=== PATIENT | male | born 1930 | race Caucasian/White ===

== ENCOUNTER 2016-09-19 08:43 | Inpatient (IN) | payer MEDICARE, OTHER ==
[~2016-09-19] VITALS: Ht 182.9 cm; Wt 72.0 kg
--- NOTE | ~2016-09-19 | DS ---
Unit #: [id number] #: [id number] Patient: ROBI SMITH SR [id number] [address] [address] [id number] MR#: [id number] NAME: ROBI SMITH SR ROOM: 468 Age: 86 Sex: M Admission Date: 09/19/2016 : 1930 Discharge Date: 09/22/2016 Attending Physician: Robi Sullivan M.D. Primary Care Physician: Ian Champagne M.D. DISCHARGE SUMMARY ADMITTING DIAGNOSES 1. Metastatic prostate cancer. 2. Urinary retention. DISCHARGE DIAGNOSES 1. Metastatic prostate cancer, status post channel transurethral resection of the prostate. 2. Urinary retention. REASON FOR ADMISSION The patient is an 86-year-old male who has metastatic prostate cancer. He is on hormone replacement. He had previous external beam radiation therapy. He has developed problems with hematuria and urinary retention. The risks, benefits and alteratives of transurethral resection of the prostate were discussed with the patient. Informed consent was obtained. He wished to proceed. HOSPITAL COURSE The patient was admitted and underwent transurethral resection of the prostate. He underwent continuous bladder irrigation. On postoperative day one he did pull his catheter a little bit and did have some brief gross hematuria, but it cleared. On postoperative day two he underwent a voiding trial. He had low postvoid residuals, but did have frequency and urgency. His urine is clear. He will be discharged today. FOLLOWUP He will follow up with Dr. Sullivan in one week. He will follow up earlier if there are any concerns, including temperature greater than 101, inability to tolerate fluids, pain not controlled by p.o. pain medications, chest pain, shortness of breath, lower extremity swelling or any other concerns. DISCHARGE MEDICATIONS 1. Percocet. 2. Keflex. 3. Peridium. 4. Colace. 5. He will resume his home medications. Dictated by... Peter Shoemaker M.D. Unit #: [id number] #: [id number] Patient: ROBI SMITH SR MDP/gz TD: 09/22/2016 07:11 JOB #: [id number] DISCHARGE SUMMARY Page 1 of 1 X Peter Shoemaker MD X DISCHARGE SUMMARY
--- NOTE | ~2016-09-19 | OR ---
Unit #: [id number] #: [id number] Patient: JAGJIT SMITH SR [id number] [address] [place], [place] [address] [id number] I MR#: [id number] NAME: JAGJIT SMITH SR ROOM: 468 Date of Procedure: 09/19/2016 Admission Date: 09/19/2016 Surgeon: Jagjit Sullivan M.D. : 1930 Attending Physician: Jagjit Sullivan M.D. Primary Care Physician: Ian Champagne M.D. OPERATIVE REPORT PREOPERATIVE DIAGNOSES Urinary retention, benign prostatic hypertrophy, recurrent prostate cancer. 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 PROCEDURES PERFORMED Cystoscopy with secondary transurethral resection of prostate. ANESTHESIA General. INDICATIONS FOR PROCEDURE This 86-year-old man, who initially had a 90 g prostate and external beam radiotherapy for prostate cancer in 1998, subsequently underwent a small TUR of prostate in 2008. He has recently developed urinary retention and problems with hematuria. His PSA is 17 and he has multiple pulmonary nodules consistent with metastatic prostate cancer. He presents having been on Casodex for several weeks, awaiting a Lupron injection. This was coordinated by Medical Oncology. DESCRIPTION OF PROCEDURE The patient was given satisfactory general anesthesia and preoperative antibiotics. He was positioned in dorsal lithotomy and the genitalia were prepped and draped. 21-Nigerien rigid cystoscope was introduced with a 30-degree lens and video noting a normal anterior urethra. The prostatic urethra was fibrotic and obstructive at the apex. Advancing the scope with rather forceful maneuvers to angle upward was not possible and even arced the sheath somewhat. I was not able to introduce the 22-scope with its obturator either. Fortunately, I was able to methodically place the 24-Nigerien resectoscope sheath with its obturator barely. This allowed falling back to see very fibrotic apices, especially on the right. There was anterior tissue, which did not appear safe to resect due to the difficulty identifying the distal extent and origins of sphincter. There was tissue on the right side and posteriorly, that was readily amenable to treatment however. In the bladder itself, there was no obvious advancement of cancer beyond the bladder neck and orifices were difficult to ascertain, but certainty appeared normal. There were no stones, tumors, or suspicious areas in the bladder. There was evidence of previous more proximal resection. Unit #: [id number] #: [id number] Patient: JAGJIT SMITH SR I used the 24-Nigerien resectoscope loop to trim some of the right remaining lobe anterior to posterior toward the apex. There was a similar and lesser resection on the left. Deepening the floor, increased the mobility of the resectoscope and reduced the angular stress. I took a look at the area several times, extending the resection closer to it until it appeared there was a clear channel. At this point, all chips were evacuated from the bladder and a 3 mm rollerball was applied, not only to mucosal edges, but much of the resected area. With complete hemostasis, the resectoscope was removed after filling the bladder and there was a spontaneous brisk stream. A 24 three-way Suh catheter was placed. The limited amount of chips were sent in formalin. Routine post TURP care is anticipated with observation overnight. Dictated by... Todd Yang/umberto TD: 09/20/2016 09:09 JOB #: [id number] CC: Jenny Chua M.D. OPERATIVE REPORT Page 1 of 1 X Jagjit Sullivan MD X PROCEDURE OPERATIVE NOTE
--- NOTE | ~2016-09-19 | EKG ---
PATIENT: JAGJIT SMITH UNIT #: [id number] Ventricular Rate: 75 BPM Atrial Rate: 87 BPM QRS Duration: 174 ms Q-T Interval: 442 ms QTC Calculation(Bezet): 493 ms Calculated R Sumrall: -75 degrees Calculated T Sumrall: 77 degrees Diagnosis Line: Electronic ventricular pacemaker Diagnosis Line: When compared with ECG of 02-OCT-2010 06:14, Diagnosis Line: Vent. rate has increased BY 23 BPM Diagnosis Line: Confirmed by NARCISA CUTLER MD ([id number]) on 09/21/2016 Diagnosis Line: 2:47:51 PM INTERPRETING MD: OMAYRA CHARLES
[~2016-09-19 08:43] MED LIST: AMIODARONE PO; ASPIRIN PO; AZOR 5-20 MG T1 EACH PO; CIPRO PO; COLESTIPOL HCL1 G PO; COUMADIN1 MG PO; DICYCLOMINE HCL20 MG PO; FISH OIL500 MG PO; FLAX SEED OIL1000 M1 PO; FLAX SEED OIL1000 MG PO; HYDROCHLOROTH12.5 M1 PO; KEPPRA500 MG PO; LIPITOR PO; LISINOPRIL PO; LISINOPRIL10 MG PO; LOVAZA; MOBIC PO
[2016-09-19] MEDS ORDERED: SYMBICORT INH (09:25)
[2016-09-19] MEDS ORDERED: LUPRON (09:26)
[2016-09-19] MEDS ORDERED: CASODEX50 M1 PO (09:27)
[2016-09-19 09:52] LABS: PARTIAL THROMBOPLASTIN TIME 26.8 SECONDS (23.5-31.3); PROTHROMBIN TIME (PATIENT) 10.9 SECONDS (10.0-11.7)
[2016-09-19] MEDS ORDERED: ZOCOR20 MG PO (15:48)
[2016-09-19] MEDS ORDERED: MELOXICAM7.5 MG PO (15:49)
[2016-09-19] MEDS ORDERED: B-121000 MC1 PO (15:49)
[2016-09-19] MEDS ORDERED: WARFARIN SODIUM2 M1 PO (15:50)
[2016-09-19] MEDS ORDERED: ZESTORETIC 20-1 EAC1 PO (15:55)
[2016-09-21] MEDS ORDERED: KEFLEX250 M2 PO (15:12)
[2016-09-21] MEDS ORDERED: DOCUSATE SODIU100 MG PO (15:13)
[2016-09-22] MEDS ORDERED: PERCOCET5/325 PO (08:36)
[2016-09-22] MEDS ORDERED: PYRIDIUM100 MG PO (08:37)
== END 2016-09-22 09:30 | disposition home or self-care (01) | DRG 713 ==
LOC: CSUR 08:43 → C4C 12:00 → CSUR 14:04 → C4C 09-22 09:30
PROVIDERS: Urology
PROC: 0TJB8ZZ Inspection of Bladder, Via Natural or Artificial Opening Endoscopic (ICD-10-PCS; 2016-09-19)
PROC: 0VT08ZZ Resection of Prostate, Via Natural or Artificial Opening Endoscopic (ICD-10-PCS; principal; 2016-09-19 11:30)
DX: N40.1 Benign prostatic hyperplasia with lower urinary tract symptoms (principal); N13.8 Other obstructive and reflux uropathy; C61 Malignant neoplasm of prostate; R31.9 Hematuria, unspecified; R33.8 Other retention of urine
CPT/HCPCS: 85610; 85730; 88305; 88341; 88342; 93005; 94760; J0690; J1100; J2405; J3010